=== PATIENT | female | born 1990 | race Two or more races ===

== ENCOUNTER 2024-06-11 13:02 | Emergency (ER) | payer MEDICAID, SELFPAY ==
[2024-06-11 13:19] VITALS: BP 127/79; PULSE 101; RESP 16; TEMP 36.8; O2SAT 98; BMI 28.3
--- NOTE | 2024-06-11 13:33 | PD.EDDENTL ---
ED Dental RME/HPI General Chief complaint: Dental/Oral/Throat Stated complaint: DENTAL PAIN RAD DOWN NECK Time Seen by Provider: 06/11/24 13:10 Arrival date/time: 06/11/24 13:02 34-year-old female presents the emergency department today complains of dental pain patient ports no fever nausea vomiting headache weakness Limitations: no limitations Related Data Previous Rx's ?Medication ?Instructions ?Recorded ferrous sulfate 325 mg (65 mg 325 mg PO .biwwm #60 tabs 10/19/20 iron) tablet ibuprofen 800 mg tablet 800 mg PO Q8H PRN pain (scale 10/19/20 score 1-3) #20 tabs tramadol 50 mg tablet 50 mg PO Q6H PRN pain (scale score 10/19/20 7-10) #10 tabs ibuprofen 600 mg tablet 600 mg PO TID PRN pain #30 tabs 03/28/23 acetaminophen 500 mg capsule 1,000 mg (2 x 500 mg) PO Q8HR PRN 12/30/23 pain #30 caps amoxicillin 875 mg-potassium 1 tab PO BID 10 days #20 tabs 06/11/24 clavulanate 125 mg tablet ibuprofen 800 mg tablet 800 mg PO TID PRN pain #30 tabs 06/11/24 Allergies Allergy/AdvReac Type Severity Reaction Status Date / Time No Known Allergies Allergy Verified 12/30/23 15:30 Review of Systems Review of Systems Systems Reviewed: All systems reviewed, normal except as documented Constitutional Constitutional: Reports system reviewed and no additional complaints, except as documented, Denies fever(s) and Denies headache(s) Eyes Eyes: Reports system reviewed and no additional complaints, except as documented and Denies blurry vision ENT Ears, Nose, Mouth, and Throat: Reports system reviewed and no additional complaints, except as documented, Reports facial pain, Denies headache(s), Reports mouth pain, Denies nasal congestion and Denies nasal discharge Cardiovascular Cardiovascular: Reports system reviewed and no additional complaints, except as documented, Denies chest pain and Denies dyspnea Respiratory Respiratory: Reports system reviewed and no additional complaints, except as documented, Denies chest congestion, Denies cough and Denies dyspnea Gastrointestinal Gastrointestinal: Reports system reviewed and no additional complaints, except as documented and Denies abdominal pain Integumentary/Breasts Skin/Breast: Reports system reviewed and no additional complaints, except as documented and Denies rash Neurologic Neurologic: Reports system reviewed and no additional complaints, except as documented, Reports as per HPI and Denies headache(s) Past Medical History Past Medical History NEUROLOGIC: Negative Neurological Disorders or Seizures CARDIAC: Negative Cardiac Disorders or Congestive Heart Failure RESPIRATORY: Negative Chronic Obstructive Pulmonary Disease (COPD) GASTROINTESTINAL: Negative Gastrointestinal Disorders GENITOURINARY: Negative Genitourinary Disorders or Renal Disease MUSCULOSKELETAL: Negative Musculoskeletal Disorders ENDOCRINE: Negative Endocrine Disorders, Diabetes Mellitus Type 1 or Diabetes Mellitus Type 2 HEMATOLOGIC: Positive Blood Disorders and Anemia OTHER HISTORY: Positive Blood Transfusions; Negative Blood Transfusion Reaction or Anesthesia Reactions Family History FAMILY HISTORY: Positive Family Cancer (grandmother, grandfather and father) Surgical History SURGICAL: Positive Tubal Ligation (in 2013) Social History SMOKING STATUS: Light (< 1 pack/day) SECOND HAND EXPOSURE: No ED Exam General Limitations: Present no limitations General appearance: Present alert and in no apparent distress Head Head exam: Present atraumatic, normocephalic and normal inspection Eye Eye exam: Present normal appearance, PERRL and EOMI ENT ENT exam: Present mucous membranes moist and other (Dental pain, facial pain) Neck Neck exam: Present normal inspection, full ROM and trachea midline Chest Chest inspection: Present normal inspection and symmetric chest wall rise Respiratory Respiratory exam: Present normal lung sounds bilaterally Cardiovascular Cardiovascular exam: Present regular rate, normal rhythm and normal heart sounds Abdominal Exam Abdominal exam: Present soft and normal bowel sounds Extremities Exam Extremities exam: Present normal inspection and full ROM Back Exam Back exam: Present normal inspection and full ROM Neurological Exam Neurological exam: Present alert, oriented X3 and CN II-XII intact Psychiatric Psychiatric exam: Present normal affect and normal mood Skin Skin exam: Present warm, dry, intact and normal color Course Quality Measures none Vital Signs Vital signs: Vital Signs Temperature 98.2 F 06/11/24 13:19 Pulse Rate 101 H 06/11/24 13:19 Respiratory Rate 16 06/11/24 13:19 Blood Pressure 127/79 06/11/24 13:19 Pulse Oximetry (%) 98 06/11/24 13:19 Oxygen Delivery Method Room Air 06/11/24 13:19 O2 saturation 98% room air within normal limits Dental / Oral MDM Narrative MDM Narrative:: 34-year-old female presents the emergency department today complains of dental pain patient ports no fever nausea vomiting headache weakness On exam patient well-appearing patient does not appear ill or toxic no acute distress Symptoms consistent with dental infection patient which with course of antibiotics Patient has no throat or neck swelling Patient discharged home in no distress to follow-up with primary care doctor in the next 24 to 48 hours and for any worsening symptoms to return to the ER immediately Patient data External records reviewed:: [facility] previous records Clinical information provided by:: patient Social determinants that could affect healthcare access:: none Patient has the following chronic illnesses:: None How is presenting disease/condition affected by chronic disease/condition?: no chronic disease Evaluation data The following diagnostics were reviewed and interpreted by me:: other (specify) (Consider not ordered) Lab and/or radiology exams considered but not ordered:: N/A Interpretation Summary: N/A Medications / Prescriptions Medications or Prescriptions considered but not ordered:: Given Medication administrations:: Given Consultations Consultation(s) initiated? (list below): No Diagnosis Dental Differential Diagnosis: gingival abscess, dental caries, toothache and dental abscess Most likely diagnosis given after review of the tests above:: Dental pain Admission Indicated Admission indicated?: not indicated Admission Request Was there a request for admission?: No Disposition Plan Disposition Plan: Discharge Discharge Attestation Discharge Attestation: The patient and all family members were given an opportunity to ask questions and understood the discharge instructions. Discharge instructions specifically effects, indications for sooner follow up or return to the emergency department, and the expected course of current diagnosis. Patient condition: Stable Discharge Plan Plan Patient Disposition: HOME (Self Care) Disposition Comment: Stable Prescriptions/Referrals Prescriptions/Med Rec: New ibuprofen 800 mg tablet 800 mg PO TID PRN (Reason: pain) Qty: 30 0RF amoxicillin-pot clavulanate 875-125 mg tablet 1 tab PO BID 10 Days Qty: 20 0RF No Action ibuprofen 800 mg tablet 800 mg PO Q8H PRN (Reason: pain (scale score 1-3)) Qty: 20 0RF tramadol 50 mg tablet 50 mg PO Q6H PRN (Reason: pain (scale score 7-10)) Qty: 10 0RF ferrous sulfate 325 mg (65 mg iron) tablet 325 mg PO .biwwm Qty: 60 0RF ibuprofen 600 mg tablet 600 mg PO TID PRN (Reason: pain) Qty: 30 0RF acetaminophen 500 mg capsule 1,000 mg PO Q8HR PRN (Reason: pain) Qty: 30 0RF Problem List Clinical Impression: Pain, dental Patient/Caregiver Discharge Instructions Education Materials: ED Dental Pain Additional Instructions: Please follow up with your primary care doctor in the next 24-48hrs for any worsening symptoms return here immediately Print Language: Italian Stand Alone Forms: Marcella Award Info., Patient Portal Info Letter PA/[employer] Supervising Physician PA/[employer] Supervising Physician: Dr. Brown
== END 2024-06-11 14:57 | disposition home or self-care (01) ==
LOC: SERX 13:29
PROVIDERS: Emergency Provider Emergency Medicine; PCP Family Medicine
DX: K08.89 Other specified disorders of teeth and supporting structures (principal)
CPT/HCPCS: 99281

== ENCOUNTER 2025-01-21 16:53 | Emergency (ER) | payer MEDICAID, SELFPAY ==
[2025-01-21 18:04] VITALS: BP 114/71; PULSE 111; RESP 20; TEMP 36.8; O2SAT 98
--- NOTE | 2025-01-21 18:28 | PD.EDADULT ---
ED General RME/HPI General Chief complaint: Wound/Laceration Stated complaint: Vaginal tear from tampon Time Seen by Provider: 01/21/25 18:13 Arrival date/time: 01/21/25 16:53 RME / HPI RME / HPI narrative: 34-year-old female patient was brought in by family for evaluation regarding vaginal irritation. Patient told me that for the last 3 days he noticed some irritation and excoriation in her vaginal area, worse with urination. Denies any swelling or palpable mass. Denies any fever denies any other complaints no medications taken prior to arrival Related Data Previous Rx's ?Medication ?Instructions ?Recorded ferrous sulfate 325 mg (65 mg 325 mg PO .biwwm #60 tabs 10/19/20 iron) tablet ibuprofen 800 mg tablet 800 mg PO Q8H PRN pain (scale 10/19/20 score 1-3) #20 tabs tramadol 50 mg tablet 50 mg PO Q6H PRN pain (scale score 10/19/20 7-10) #10 tabs ibuprofen 600 mg tablet 600 mg PO TID PRN pain #30 tabs 03/28/23 acetaminophen 500 mg capsule 1,000 mg (2 x 500 mg) PO Q8HR PRN 12/30/23 pain #30 caps ibuprofen 800 mg tablet 800 mg PO TID PRN pain #30 tabs 06/11/24 cefuroxime axetil 500 mg tablet 500 mg PO BID #14 tabs 01/21/25 fluconazole 150 mg tablet 150 mg PO Q3D 2 doses #2 tabs 01/21/25 nystatin-triamcinolone 100,000 1 applic topical BID #30 grams 01/21/25 unit/g-0.1 % topical cream Allergies Allergy/AdvReac Type Severity Reaction Status Date / Time No Known Allergies Allergy Verified 01/21/25 16:57 Review of Systems Review of Systems Narrative Review of Systems: Review of system reviewed and within normal limits except mentioned in HPI ED Exam Narrative Physical exam: VITAL SIGNS: Reviewed. GENERAL APPEARANCE: Alert and interactive, follows commands, no acute distress, HEAD AND FACE: Non-traumatic. ENT: PERRL, pink conjunctivitis, eyelid no trauma, Mucous membrane moist. NECK: Supple, nontender, no nuchal rigidity. CHEST: No tenderness, no crepitus, no paradoxical movement, no retractions. LUNGS: Clear, well ventilated, symmetric, no rales, no wheezing, no ronchi, no stridor, good breath sounds bilaterally. HEART: Regular rate, regular rhythm, no murmur, no gallops. ABDOMEN: Soft, positive bowel sounds, nondistended, no guarding, nontender, no rebound, no masses, RECTAL: Deferred. GENITAL: Genital exam was evaluated with a female ADULT NURSE PRACTITIONER around all the time. I noticed some excoriation on the labia majora and minora. With tenderness yellowish genital discharge NEUROLOGICAL: Gross motor function intact sensory function intact, Appropriate for age. MUSCULOSKELETAL: low back nontender, full range of motion. EXTREMITIES: Nontender, full range of motion. SKIN: Color pink, dry, no rash, no lacerations, no abrasions, no contusions. LYMPHATICS: Deferred. Course Quality Measures none Orders Category Date Time Status UA, C/S IF [Urinalysis, C/S if Indicated] Stat Lab 01/21/25 21:22 Completed Urine Culture Stat Lab 01/21/25 21:22 Received Fluconazole [Diflucan] Med 01/21/25 21:22 Discontinued 150 mg PO X1 ONE Ibuprofen Tab [Motrin Tab] Med 01/21/25 21:22 Discontinued 800 mg PO X1 ONE cephALEXin [Keflex] Med 01/21/25 21:48 Discontinued 500 mg PO X1 ONE Vital Signs Vital signs: Vital Signs Temperature 98.2 F 01/21/25 18:04 Pulse Rate 111 H 01/21/25 18:04 Respiratory Rate 20 01/21/25 18:04 Blood Pressure 114/71 01/21/25 18:04 Pulse Oximetry (%) 98 01/21/25 18:04 Oxygen Delivery Method Room Air 01/21/25 18:04 Discharge Plan Plan Patient Disposition: HOME (Self Care) Discharge Disposition comment: stable Prescriptions/Referrals Prescriptions/Med Rec: New cefuroxime axetil 500 mg tablet 500 mg PO BID Qty: 14 0RF fluconazole 150 mg tablet 150 mg PO Q3D Qty: 2 0RF nystatin-triamcinolone 100,000-0.1 unit/g-% cream 1 applic topical BID Qty: 30 0RF No Action ibuprofen 800 mg tablet 800 mg PO Q8H PRN (Reason: pain (scale score 1-3)) Qty: 20 0RF tramadol 50 mg tablet 50 mg PO Q6H PRN (Reason: pain (scale score 7-10)) Qty: 10 0RF ferrous sulfate 325 mg (65 mg iron) tablet 325 mg PO .biwwm Qty: 60 0RF ibuprofen 600 mg tablet 600 mg PO TID PRN (Reason: pain) Qty: 30 0RF acetaminophen 500 mg capsule 1,000 mg PO Q8HR PRN (Reason: pain) Qty: 30 0RF ibuprofen 800 mg tablet 800 mg PO TID PRN (Reason: pain) Qty: 30 0RF Referrals: Josue Willingham MD [Primary Care Provider] - In 1 week Problem List Clinical Impression: UTI (urinary tract infection), Vaginal yeast infection Patient/Caregiver Discharge Instructions Discharge Activity: activity as tolerated Education Materials: Understanding Urinary Tract ..., Candidiasis Vaginal Additional Instructions: Thank you for the opportunity for serving you today. You are stable for discharged . You are advised to: Follow-up with your PCP in 1 to 2 days Return to ED for worsening of symptoms Increase oral fluids Take medication as prescribed Print Language: Hong Konger Stand Alone Forms: Marcella Award Info., Patient Portal Info Letter PA/DIRECTOR OF DIGITAL TECHNOLOGY Supervising Physician PA/MARK Supervising Physician: MD Matteo MDM Narrative MDM hospital course: 34-year-old female patient was brought in by family for evaluation regarding vaginal irritation. Patient told me that for the last 3 days he noticed some irritation and excoriation in her vaginal area, worse with urination. Denies any swelling or palpable mass. Denies any fever denies any other complaints no medications taken prior to arrival Patient received ibuprofen p.o. and Keflex in the emergency room for UTI. Diflucan for candidiasis. Urinalysis positive for UTI Medication Administration(s) Medication Administration History Discontinued Medications Cephalexin HCl (Cephalexin 250 Mg Capsule) 500 mg PO X1 ONE Stop: 01/21/25 21:49 Last Admin: 01/21/25 22:05 Dose: 500 mg Documented By: SF Fluconazole (Fluconazole 150 Mg Tablet) 150 mg PO X1 ONE Stop: 01/21/25 21:23 Last Admin: 01/21/25 22:05 Dose: 150 mg Documented By: SF Ibuprofen (Ibuprofen Tab 400 Mg Tablet) 800 mg PO X1 ONE Stop: 01/21/25 21:23 Last Admin: 01/21/25 22:05 Dose: 800 mg Documented By: SF Diagnosis Differential diagnosis: UTI candidiasis, yeast infection genital herpes Most likely dx, and/or detailed dx discussion: UTI, vaginal candidiasis/yeast infection
[2025-01-21 20:14] VITALS: BP 121/75; PULSE 84; RESP 20; TEMP 36.9; O2SAT 99
[2025-01-21 21:26] LABS: Collection Type, Urine Clean Catch
[2025-01-21 21:41] LABS: Amorphous Crystals,Urine Present (Absent); Bilirubin,Urine Negative (Negative); Blood,Urine 2+ (Negative); Clarity,Urine Clear (Clear/Hazy); Color,Urine Lt-Yellow (Lt Yel-Yel); Glucose, Urine Negative (Negative); Ketones,Urine Negative (Negative); Leukocyte Esterase,Urine Positive (Negative); Nitrite,Urine Negative (Negative); PH,Urine 5.5 (5.0-7.0); Protein,Urine Negative (Neg - Trace); RBC,Urine 11 /hpf (0-3); Specific Gravity,Urine 1.028 (1.001-1.035); Squamous Epithelial Cell,Urine 4 /hpf (0-5); Urobilinogen,Urine Negative mg/dL (0.0-1.0); WBC,Urine 12 /hpf (0-5)
[2025-01-21 21:45] LABS: Culture Indicated,Urine Yes
[2025-01-21] MEDS: FLUCONAZOLE 150 MG TABLET PO (22:05)
[2025-01-21] MEDS: IBUPROFEN TAB 400 MG TABLET 800 MG PO (22:05)
== END 2025-01-21 22:17 | disposition home or self-care (01) ==
PROVIDERS: Nurse Practitioner Family; Emergency Provider Emergency Medicine; PCP Family Medicine
DX: N39.0 Urinary tract infection, site not specified (principal); B37.31 Acute candidiasis of vulva and vagina
CPT/HCPCS: 81001; 87086; 99283; A9270